=== PATIENT | female | born 2000 | race Hispanic/Latino ===

== ENCOUNTER 2018-12-02 22:46 | Emergency (ER) | payer SELFPAY ==
[2018-12-02] MEDS ORDERED: L.E.T. GEL 4%/0.5%/0.18% 3ML 3 ML/SYR SYG TP ONE (23:58)
[2018-12-03] MEDS ORDERED: LIDOCAINE HCL 1% 20 ML VIAL ONE (00:45)
[2018-12-03] MEDS ORDERED: ACETAMINOPHEN EXTRA STRENGTH 500 MG TABLET ONE (01:31)
== END 2018-12-03 01:36 | disposition home or self-care (01) ==
LOC: EDH 22:46
DX: S01.81XA Laceration without foreign body of other part of head, initial encounter (principal); W18.39XA Other fall on same level, initial encounter; Y93.89 Activity, other specified; Y92.89 Other specified places as the place of occurrence of the external cause; Y99.8 Other external cause status
CPT/HCPCS: 12032; 12053; 70450; 70486; 72125; 81025